=== PATIENT | male | born 1960 | race Caucasian/White ===

== ENCOUNTER 2022-10-08 09:06 | Outpatient (RCR) | payer OTHER | END 2022-10-09 | disposition home or self-care (01) | LOC: CR 09:06 | DX: Z29.8 Encounter for other specified prophylactic measures (principal); Z95.5 Presence of coronary angioplasty implant and graft | CPT/HCPCS: 93798 ==

== ENCOUNTER 2022-10-24 09:10 | Outpatient (RCR) | payer OTHER | END 2022-11-09 | disposition home or self-care (01) | LOC: CR 09:10 | DX: Z29.8 Encounter for other specified prophylactic measures (principal); Z95.5 Presence of coronary angioplasty implant and graft | CPT/HCPCS: 93798 ==

== ENCOUNTER 2022-12-03 09:09 | Outpatient (RCR) | payer OTHER | END 2022-12-09 | disposition home or self-care (01) | LOC: CR 09:09 | PROVIDERS: ATTEND Internal Medicine Cardiovascular Disease | DX: Z29.8 Encounter for other specified prophylactic measures (principal); I48.91 Unspecified atrial fibrillation; Z95.5 Presence of coronary angioplasty implant and graft | CPT/HCPCS: 93798 ==

== ENCOUNTER 2022-12-12 11:12 | Outpatient (RCR) | payer OTHER | END 2023-01-09 | disposition home or self-care (01) | LOC: CR 11:12 | DX: Z29.8 Encounter for other specified prophylactic measures (principal); I48.91 Unspecified atrial fibrillation; Z95.5 Presence of coronary angioplasty implant and graft | CPT/HCPCS: 93798 ==